=== PATIENT | male | born 1945 | race Caucasian/White ===

== ENCOUNTER 2022-11-28 07:40 | Outpatient (CLI) | payer MEDICARE, SELFPAY ==
--- NOTE | 2022-11-28 08:36 | ECG_ITS ---
Measurements Intervals [place] Rate: 54 P: 52 IA: 186 QRS: 30 QRSD: 112 T: 29 QT: 419 QTc: 400 Interpretive Statements SINUS BRADYCARDIA INCOMPLETE RIGHT BUNDLE BRANCH BLOCK BASELINE ARTIFACT- I, II, III, AVR, AVL, AVF, V1, V4-V6 BORDERLINE ECG COMPARED TO ECG 06/27/2018 14:01:03 SINUS BRADYCARDIA NOW PRESENT Electronically Signed On 11-28-2022 9:56:26 CDT by Yo Smith D.O.
[2022-11-28 09:13] LABS: Hemoglobin A1C 6.4 % (<5.7)
[2022-11-28 09:14] LABS: Urine Cotinine NEGATIVE
== END 2022-11-28 07:41 | disposition home or self-care (01) ==
LOC: ANHSURGERY 07:44
PROVIDERS: PCP Family Medicine Sports Medicine; Visit Provider Orthopaedic Surgery
DX: M17.11 Unilateral primary osteoarthritis, right knee (principal); Z01.818 Encounter for other preprocedural examination; I45.10 Unspecified right bundle-branch block
CPT/HCPCS: 80307; 83036; 86850; 86900; 86901; 87081; 93005

== ENCOUNTER 2022-12-06 12:38 | Observation (INO) | payer MEDICARE, SELFPAY ==
[2022-11-28 07:51] VITALS: BMI 30.7
--- NOTE | 2022-11-28 08:19 | PC.NURSE ---
Report to the Outpatient Waiting Room, entrance under the green pavilion located off [facility], at time _0600 on date __12/05/22 . Planned Procedure Time: _0730 . Time changes happen often and if your time is changed the preop area will call you the afternoon before. - You and your visitor will be asked to self-screen and do not enter if you have any COVID symptoms. - A mask is optional within the hospital at this time. Patients may have clear liquids (water, carbonated beverages, clear teas, apple juice) until 3 hours prior to surgery with a maximum of 20 ounces. - No food from midnight until time of surgery - Infants may have breast milk until 4 hours before surgery, infant formula 6 hours prior to surgery. - Children will be allowed to drink immediately following surgery. If applicable, please bring a bottle or sippy cup to assist with drinking. Juice, water, soda, and popsicles are readily available. For infants on formula, please bring formula the day of surgery. Pacifiers are allowed. Take the following medications with a SIP of water the morning of surgery: ___DILTIAZEM,EYE DROP DO NOT STOP ANY OF YOUR OTHER PRESCRIPTION MEDICATIONS PRIOR TO SURGERY ?EXCEPT THE FOLLOWING Medications to discontinue per physician ALL VITAMINS AND SUPPLEMENTS 3 DAYS PRE OP.LAST DOSE 12/01/22 Please no make-up, nail vietnamese, hairspray, perfume, deodorant, or body powder the day of surgery. No jewelry (including any body piercings) or valuables the day of surgery, leave them at home. Please take a shower or bath the night before, or the morning of, surgery with an antibacterial soap. Wear comfortable, loose fitting clothing. Children are encouraged to wear pajamas. - Jewelry must be removed prior to entering the operating room. Rings and piercings that are not removed may be cut off. - The hospital will not accept responsibility for valuables. - Please leave all valuables, including medications, at home the day of surgery. If you are going home after surgery, a licensed lease purchase truck driver must drive you home. - NO public transportation without another adult if you receive anesthesia. - We recommend that an adult stay with you for 24 hours following discharge. - We also recommend that you do not drive, make important decision, drink alcoholic beverages, or take any drugs that were not prescribed by your health care provider for at least 24 hours after your discharge time. For Pediatric surgeries, we recommend two adults accompany the child home. Follow any additional instructions given to you from your surgeon. If you or anyone in your household have experienced Covid symptoms in the past week, please notify your surgeon or the nurse liaison at the phone number below for possible testing. VERBAL AND WRITTEN instructions given to __PATIENT and asked if any additional questions and then verbalized understanding. Patient advised to call surgeon office or pre surgery nurse liaison [phone] if any additional questions.
[2022-11-28 08:48] VITALS: BP 166/76; PULSE 66; RESP 18; TEMP 36.9; O2SAT 97
[2022-12-05] VITALS (14 sets, daily range): BP systolic 128–157; BP diastolic 71–87; PULSE 50–82; RESP 13–19; TEMP 35.6–37.2; O2SAT 94–99; BMI 30.3
[2022-12-05] MEDS: ACETAMINOPHEN 500 MG TABLET 1000 MG PO (06:42)
--- NOTE | 2022-12-05 06:43 | WPDANESEPPF ---
Anes - Initial Pre Proc Eval Procedure: Operation Date: 12/05/22 07:30 Proposed Procedures p Right Total Knee Arthroplasty - Venu Bryson MD Date/Time: 12/05/22 06:43 Surgeon: Venu Bryson MD Pre Op Diagnosis: OA right knee Patient Data Age: 77 Gender: M Height: 1.78 m Weight: 96.15 kg Last Vital Signs Temp 36.3 C L 12/05/22 06:12 Pulse 60 12/05/22 06:12 Resp 16 12/05/22 06:12 BP 151/85 H 12/05/22 06:12 Pulse Ox 97 12/05/22 06:12 O2 Del Method Room Air 12/05/22 06:12 Allergies Allergy/AdvReac Type Severity Reaction Status Date / Time No Known Allergies Allergy Verified 12/05/22 06:24 Home Medications Medication Instructions Recorded Confirmed Type acetaminophen 650 mg 650 mg PO Q12H 09/01/22 12/05/22 History tablet,extended release (Tylenol Arthritis Pain) ascorbate calcium (vitamin C) 500 500 mg PO DAILY 09/01/22 12/05/22 History mg tablet aspirin 81 mg capsule 81 mg PO DAILY 09/01/22 12/05/22 History fluorometholone 0.1 % eye 1 drp LEFT EYE DAILY 09/01/22 12/05/22 History drops,suspension glucosamine 500 1 cap PO DAILY 09/01/22 12/05/22 History vl-rdacgmxva-ylvbfxil comp 400 mg-D3 667 unit-C-Mn cap lisinopril 20 1 tablet PO DAILY 09/01/22 12/05/22 History mg-hydrochlorothiazide 25 mg tablet omega-3 fatty acids-fish oil 360 1 cap PO DAILY 09/01/22 12/05/22 History mg-1,200 mg capsule (Fish Oil) simvastatin 10 mg tablet 10 mg PO DAILY 09/01/22 12/05/22 History cholecalciferol (vitamin D3) 50 50 mcg PO DAILY 11/28/22 12/05/22 History mcg (2,000 unit) tablet diltiazem HCl 120 mg 120 mg PO Q12H 11/28/22 12/05/22 History capsule,extended release 12 hr Xarelto 10 mg tablet (rivaroxaban) 10 mg PO DAILY #14 tabs 12/01/22 12/05/22 Rx Patient hx anesthesia problems: none Family hx anesthesia problems: none Results Review: All pre-operative results and documents have been reviewed as part of the pre-operative evaluation. [facility] Past Medical History Medical History (Updated 12/02/22 @ 14:22 by Charly Martínez DO) Arthritis of right knee Hyperlipidemia Hypertension Surgical History Surgical History (Updated 12/02/22 @ 14:22 by Charly Martínez DO) History of cornea transplant left eye History of left knee replacement 07/12/18 History of tonsillectomy Family History Family History Father Malignant neoplasm of prostate Social History Social History Smoking status: Never smoker Additional smoking assessment comments: DENIES ANY FORM OF TOBACCO USE Alcohol intake: never Substance use: never Lack of Transportation: No Lack of Food: Never True Current Housing: I Have Housing Concerned About Future Housing: No Difficulty Paying Gas/Electric Bills: No Difficulty Paying for Meds: No Currently Unemployed: No Education: High School Diploma/GED Difficulty w/ Childcare or Family Care: No Living arrangements: with family Occupation/Education: occupation Additional occupation/education comments: semi-retired Spiritual care concerns: No Anes - Eval Final PreProcedure Day of Procedure 12/05/22 06:43 Patient weight: obese Heart: regular rate and rhythm Lungs: clear to auscultation and normal air movement Airway: Mallampati scale class II Neurological: alert and oriented Last oral intake: >/= 8 hours ASA classification: III Emergent: no Anesthetic plan: proceed Anesthesia type and monitoring: regional spinal and standard monitoring Results Review: All pre-operative results and documents have been reviewed as part of the pre-operative evaluation. Informed Consent: The patient's anesthetic plan and its attendant risks and benefits were discussed with the patient/family/POA. Questions were solicited and answers provided to the satisfaction of the patient/family/POA.
[2022-12-05] MEDS: LACTATED RINGERS 1,000 ML 30 ML IV CONT ×2 (06:50→10:19)
--- NOTE | 2022-12-05 06:58 | WPDANESPNB ---
Anes - Peripheral Nerve Block Date/Time: 12/05/22 06:58 I have discussed with the patient/family/POA the placement of a peripheral nerve block for post-operative pain management, including associated risks, benefits, complications, and side effects. Alternative methods of post-operative analgesia were detailed. Questions were solicited and answers provided to the satisfaction of the patient/family/POA. Time-Out: A pre-procedural Time-Out was completed immediately before starting the procedure and confirmed: Patient Identification, Site, Procedure, Patient Position and the Availability of Requisite Equipment. Clinical Indications: Acute post-operative pain management requested by the operative surgeon. Nerve Block Insertion Note Anes-nerve block: adductor canal right Patient position: supine Skin prep: chlorhexidine Needle: 22 gauge, stimulating, insulated echogenic needle. Needle length: 80 mm Technique: ultrasound Injectate: bupivacaine 0.5% with epi 5 mcg/ml (30cc - no epi) Observations: tolerated well Complications: none Procedure start time:: 724 Procedure end time:: 728
[2022-12-05] MEDS: TRANEXAMIC ACID 1,000MG/ISO100 1,000 MG/100 ML BAG 200 MG IVPB (07:05)
--- NOTE | 2022-12-05 07:18 | WPDHPUPDATE1 ---
History and Physical Update Update Date/Time: 12/05/22 07:18 History and Physical has been reviewed, including an updated exam of the patient. There are NO changes in the patient's condition. Risks, benefits, and alternatives have been discussed and questions answered. Patient agrees to proceed with procedure.
[2022-12-05] MEDS: ceFAZolin 2 GM/D5W 50 ML 2 GM/50 ML BAG IVPB ×2 (07:34→15:41)
[2022-12-05] MEDS: GENTAMICIN BONE CEMENT REFOBACIN 1 EACH TOPICAL (08:39)
[2022-12-05] MEDS: ceFAZolin SODIUM 1 GM VIAL IV PUSH (09:41)
--- NOTE | 2022-12-05 10:03 | P.OP_ITS ---
Procedure Note - Detailed Date of Procedure 12/05/22 Pre-op Diagnosis OA right knee Post-op Diagnosis Same Procedure Performed right total knee replacement Surgeon Venu Bryson MD Voltage Inspector Demar Mcmillan Anesthesia Regional and Spinal Description of Procedure The patient was identified and proper site identified. In the preop holding area the anesthesia team performed a right-sided sub sartorial block after which the patient was taken to the operating room and transferred to the OR table positioning supine taking care to pad the torso and extremities. After spinal anesthetic was administered a nonsterile tourniquet was placed high on the right thigh. The right lower extremity was prepped and draped in the usual sterile fashion. The extremity was exsanguinated and with the knee flexed tourniquet was inflated to 300 mmHg remaining up for approximately 74 minutes. An anterior midline incision was made and a modified medial parapatellar approach was used. Infra and suprapatellar fat pads were excised. Patella was resected leaving 15 mm thickness and prepared for the size 32 round three peg component. Using the intramedullary guide the distal femur was cut in the proper orientation for the size eight femoral component. Using the extramedullary guide the tibia was cut perpendicular to the long axis protecting collateral ligaments and popliteal structures. It was sized to a 8-. Flexion and extension gaps were balanced. Trial reduction was undertaken and the weight-bearing line was noted to passed through the center of the joint. Proximal tibia was drilled and punched in the proper orientation for the real component. Trial components were removed. The bone surfaces were washed with pulsatile lavage and dried. The real components were cemented simultaneously. The knee was held in extension and the patella held clamped until the cement had cured. Excess cement was removed from the joint. After trialing it was determined that the 13 mm insert gave full range of motion from 0-120 degrees of flexion and the patella tracked in the femoral groove with no lift-off. After final lavage the joint the real size 13 insert was placed and secured with a locking bar. A Betadine and saline wash was placed into the wound and allowed to sit for approximately 3 minutes and then evacuated. Periarticular tissues were infiltrated with 60 cc of the arthroplasty solution. Surgicel powder was applied into the wound during the closure. The extensor mechanism was repaired with #2 Vicryl suture and 0 looped PDS suture. Subcu was reapproximated with 3-0 Monocryl, 2-0 Stratafix and tissue adhesive for the skin. A sterile dressing was applied. He tolerated the procedure well, was awakened and extubated, transferred to the bed and was taken to recovery area in stable condition. There were no known intraoperative complications. Periope rative antibiotics were administered. Estimated Blood Loss 200 Tourniquet Time 74 Drains No Packing No Complications No immediate complications Condition Stable Disposition PACU [facility] Billing Surgery - Charge Forward: Surgery Billing ([id number])
--- NOTE | 2022-12-05 10:22 | SUR.OPER ---
100mL of clear yellow urine drained from waldrop at the end of the procedure
--- NOTE | 2022-12-05 12:33 | ADMGEN ---
This patient, Lonnie Costa, was admitted to [facility] Surg Room 321-01. Patient/family oriented to hospital policies and general routines including ID bracelet, bed and alarms, visiting hours, pain management, procedures, bathroom and other care routines, personal items, smoking policy, room service/diet, and visiting hours. Information on how to activate the Rapid Response Team has been discussed. Patient/Family are encouraged to report perceived risks to care and to ask questions if they do not understand what they are told or what they should do.
[2022-12-05] MEDS: oxyCODONE/ACETAMINOPHEN (*CRX) 5-325 MG TABLET 1 TABLET PO ×3 (12:40→20:45)
[2022-12-05] MEDS: oxyCODONE HCL (*CRX) 5 MG TAB IR PO (14:10)
[2022-12-05] MEDS: SENNA/DOCUSATE SODIUM TABLET 2 TAB PO (16:46)
[2022-12-05] MEDS: SIMVASTATIN 10 MG TABLET PO (20:45)
[2022-12-05] MEDS: dilTIAZem HCL 12 HR 60 MG CAP.12HR 120 MG PO (20:45)
--- NOTE | ~2022-12-06 | XR_ITS ---
EXAMINATION: [id number] DATE: 12/05/2022 10:46 INDICATION: Right total knee arthroplasty. Postop. TECHNIQUE: 2 views of right knee were obtained. COMPARISON: None. FINDINGS: There is a total right knee arthroplasty with patellar resurfacing in near-anatomic alignme nt. No fracture. There is gas in the knee joint and soft tissues, consistent with recent surgery. The re is a knee joint effusion. IMPRESSION: 1. Total right knee arthroplasty in near-anatomic alignment. Reviewed, dictated and finalized at location A.
[2022-12-06] MEDS: ceFAZolin 2 GM/D5W 50 ML 2 GM/50 ML BAG IVPB ×2 (00:18→08:50)
[2022-12-06 01:12] VITALS: BP 131/81; PULSE 96; RESP 18; TEMP 36.6; O2SAT 96
[2022-12-06] MEDS: oxyCODONE/ACETAMINOPHEN (*CRX) 5-325 MG TABLET 1 TABLET PO ×5 (01:41→20:18)
[2022-12-06 04:01] VITALS: BP 164/93; PULSE 95; RESP 18; TEMP 36.2; O2SAT 98
--- NOTE | 2022-12-06 07:37 | PM.DS ---
DS: Admitting Diagnosis Discharge Date 12-06-2022 Admitting Diagnosis Right knee osteoarthritis DS: Discharge Diagnosis Discharge Diagnosis (1) Status post total right knee replacement: Code(s): Z96.651 - Presence of right artificial knee joint Status: Acute Plan 77-year-old male postop day 1 after right total arthroplasty. He was able to ambulate with therapy yesterday and get up to use the bathroom with his walker overnight. Slight bloody drainage at the incision site this morning. No sign of purulent drainage. Pain is well controlled. Plan discharge later this afternoon and he has follow-up scheduled in our office in 2 weeks for wound check. Postoperative wound care and medications were reviewed in detail. He had no further questions. Was informed to call our office if he has any further questions or concerns prior to scheduled follow-up. DS: Summary Hospital Course Reason for hospitalization: Observation after outpatient procedure Hospital Course: 77-year-old male admitted for observation after right total knee arthroplasty on 12-05-2022. Uneventful overnight stay. He was able to work well with therapy yesterday and will continue to do so today using his walker. He will begin with his 1st dose of Xarelto today. He will also finish his IV antibiotics prior to discharge from the facility. Status at Discharge Functional status at discharge: uses cane/walker Overall status at discharge: patient is progressing back to baseline Time Spent with Patient Time attestation: Total time spent providing and/or coordinating discharge services: Time spent: Less than 30 minutes Exam Const: General: cooperative, healthy appearing, no acute distress and average body habitus Nutritional Appearance: average body habitus Orientation/consciousness: patient oriented x3 Limitations: no limitations HENMT: Head: normocephalic and atraumatic Ears: hearing grossly normal bilaterally Mouth: Yes moist mucous membranes Teeth and gingiva: fair dentition Eyes: General: appearance normal, both eyes and all related structures Alignment and Position: alignment normal Pupils: Equal, round and reactive pupils present Neck: Neck: normal visual inspection Chest: Chest palpation & inspection: normal inspection of the chest Resp: Effort & Inspection: normal respiratory effort and able to speak in complete sentences GI: Inspection: normal to inspection and non-distended GI Palp: Yes Soft to palpation and No Tenderness to palpation present (GI) Skin: General skin exam: normal color and no rashes or lesions noted Neuro: General: patient oriented x3 Cranial nerves: Yes Equal, round and reactive pupils present Speech: normal speech Sensory Exam: normal sensation Extrem: Other: Exam of the right knee demonstrates pain with active and passive flexion and extension of the knee. There is moderate swelling to the right lower extremity but this is expected with the recent surgical procedure. Calves negative. Neurovascular status right lower extremity is intact. Psych: Appearance: grossly normal Mental Status: mental status grossly normal Discharge Plan Discharge Patient Disposition: Home, Self-Care Discharge Instructions: 3 times daily for 20 minutes each time, reclining in bed with ice packs over the incision and a pillow underneath the calf of the affected leg, not under the knee. Your wound is glued so it is okay to remove the dressing, get into the shower and get the wound wet in two days. Be sure to read through all the information that came from a my office and the hospital. Most of the answers you will need can be found that material. Call the office with any questions that you cannot find answers to, or concerns you may have. After the Xarelto is completed, start taking one coated 325 mg aspirin daily and do this for four more weeks. Please call [facility] at as soon as possible to arrange for/v
[2022-12-06 08:00] VITALS: BP 138/85; PULSE 57; RESP 18; TEMP 35.9; O2SAT 98
[2022-12-06] MEDS: RIVAROXABAN 10 MG TABLET PO (08:56)
[2022-12-06] MEDS: CHOLECALCIFEROL 1,000 UNITS TABLET 2000 UNITS PO (08:57)
[2022-12-06] MEDS: FLUOROMETHOLONE 0.1% OP SUSP 5 ML BTL 1 DROP LEFT EYE (08:57)
[2022-12-06] MEDS: lisinopriL 20 MG TABLET PO (08:57)
[2022-12-06] MEDS: ASCORBIC ACID 500 MG TABLET PO (08:57)
[2022-12-06] MEDS: SENNA/DOCUSATE SODIUM TABLET 2 TAB PO ×2 (08:57→17:30)
[2022-12-06] MEDS: hydroCHLOROthiazide 25 MG TABLET PO (08:57)
[2022-12-06] MEDS: dilTIAZem HCL 12 HR 60 MG CAP.12HR 120 MG PO ×2 (08:57→20:18)
[2022-12-06 09:25] LABS: Basophils Absolute Auto 0.1 K/mm3 (0.0-0.1); Basophils Percent Auto 0.6 % (0.2-1.2); Eosinophils Percent Auto 0.1 % (0-4.4); Hematocrit 41.1 % (42.0-52.0); Hemoglobin 13.7 g/dL (14.0-18.0); Immature Granulocyte Absolute 0.03 K/mm3 (0.00-0.031); Immature Granulocyte Percent A 0.3 % (0-0.5); Lymphocytes Absolute Auto 1.49 K/mm3 (0.9-3.2); Lymphocytes Percent Auto 17.2 % (18.3-44.2); Mean Corpuscular HGB Conc 33.3 g/dl (32-36); Mean Corpuscular Hemoglobin 30.4 pg (26-34); Mean Corpuscular Volume 91.3 fl (80-100); Mean Platelet Volume 8.8 fl (7.4-10.4); Monocytes Absolute Auto 1.4 K/mm3 (0.1-0.6); Monocytes Percent Auto 15.6 % (2.6-8.5); Neutrophils Absolute Auto 5.7 K/mm3 (1.3-6.7); Neutrophils Percent Auto 66.2 % (45.5-73.1); Platelet Count Result 296 k/mm3 (150-375); Red Cell Distribution Width 13.4 % (11.5-14.5); White Blood Count 8.6 K/mm3 (4.5-10.0)
[2022-12-06 09:35] LABS: Alanine Aminotransferase 23 U/L (6-50); Albumin Level 3.7 g/dL (3.5-5.1); Alkaline Phosphatase 69 U/L (38-126); Anion Gap 6 mmol/L (8-16); Aspartate Amino Transferase 24 U/L (17-59); Bilirubin,Total 1.1 mg/dL (0.2-1.3); Blood Urea Nitrogen 12 mg/dL (9-20); Calcium 8.5 mg/dL (8.4-10.2); Carbon Dioxide 25 mmol/L (22-30); Chloride 96 mmol/L (98-107); Estimated CRCL calculation 89 ml/min; Estimated Glomerular Filt Rate > 60; Glucose 149 mg/dL (65-110); Potassium 3.9 mmol/L (3.4-5.0); Sodium 127 mmol/L (137-145)
[2022-12-06 09:37] LABS: INR 1.2; Partial Thromboplastin Time 32.9 SECONDS (22.3-36.8); Prothrombin Time 15.3 Seconds (11.1-14.7)
--- NOTE | 2022-12-06 09:56 | PM.IMCN ---
Assessment and Plan Assessment and plan (1) Status post total right knee replacement: Code(s): Z96.651 - Presence of right artificial knee joint Status: Acute Assessment and Plan: POD 1 from right total knee replacment with Dr Bryson -increased bleeding from knee this morning after working with therapy -will stay overnight -pain medications prn with oxycodone -bowel regimen with miralax -ice and elevate right knee -PT/OT -DVT prophylaxis with rivaroxaban HPI Data of Consult Consult date: 12/06/22 Requesting Physician: Venu Bryson MD Primary Care Provider: Armani Lee, Consult Narrative Narrative: Lonnie Costa is a 77 year old male with a past medical history of arthritis, hypertension, high cholesterol, and atrial fibrillation. He is postop day 1 for right total knee replacement with Dr. Bryson. hospitalist Medicine has been consulted to follow along in care of patient. He was going to discharge this morning, however his surgical incision had a moderate amount of bleeding present. Dr Bryson recommended him staying another night. He is seen at the bedside with his present. He says that he is doing pretty well just tired from not sleeping that great last night. He says that his pain is controlled with his current regimen and he is tolerating a diet. He has no concerns or complaints for me at this time. Review of Systems Review of Systems: All systems reviewed & are unremarkable except as noted in HPI and below PMFSH Past Medical History Medical History (Updated 12/06/22 @ 07:38 by SILVINO Salomon) Arthritis of right knee Hyperlipidemia Hypertension Surgical History Surgical History (Updated 12/06/22 @ 07:38 by SILVINO Salomon) History of cornea transplant left eye History of left knee replacement 07/12/18 History of tonsillectomy Family History Family History Father Malignant neoplasm of prostate Social History Social History Smoking status: Never smoker Additional smoking assessment comments: DENIES ANY FORM OF TOBACCO USE Alcohol intake: never Substance use: never Substance use type: does not use Lack of Transportation: No Lack of Food: Never True Current Housing: I Have Housing Concerned About Future Housing: No Difficulty Paying Gas/Electric Bills: No Difficulty Paying for Meds: No Currently Unemployed: No Education: High School Diploma/GED Difficulty w/ Childcare or Family Care: No Living arrangements: with family Occupation/Education: occupation Additional occupation/education comments: semi-retired Spiritual care concerns: No Meds Home Medications and Allergies Home Medications Medication Instructions Recorded Confirmed Type acetaminophen 650 mg 650 mg PO Q12H 09/01/22 12/05/22 History tablet,extended release (Tylenol Arthritis Pain) ascorbate calcium (vitamin C) 500 500 mg PO DAILY 09/01/22 12/05/22 History mg tablet aspirin 81 mg capsule 81 mg PO DAILY 09/01/22 12/05/22 History fluorometholone 0.1 % eye 1 drp LEFT EYE DAILY 09/01/22 12/05/22 History drops,suspension glucosamine 500 1 cap PO DAILY 09/01/22 12/05/22 History un-szqwwehwi-jzjykoci comp 400 mg-D3 667 unit-C-Mn cap lisinopril 20 1 tablet PO DAILY 09/01/22 12/05/22 History mg-hydrochlorothiazide 25 mg tablet omega-3 fatty acids-fish oil 360 1 cap PO DAILY 09/01/22 12/05/22 History mg-1,200 mg capsule (Fish Oil) simvastatin 10 mg tablet 10 mg PO DAILY 09/01/22 12/05/22 History cholecalciferol (vitamin D3) 50 50 mcg PO DAILY 11/28/22 12/05/22 History mcg (2,000 unit) tablet diltiazem HCl 120 mg 120 mg PO Q12H 11/28/22 12/05/22 History capsule,extended release 12 hr Xarelto 10 mg tablet (rivaroxaban) 10 mg PO DAILY #14 tabs 12/01/22 12/05/22 Rx celecoxib 100 mg capsule 100 mg PO BID 1 w
--- NOTE | 2022-12-06 10:54 | WPDANESPN ---
Anes - Prog Note Post-Op Date/Time: 12/06/22 10:54 Vital Signs: Last Vital Signs Temp 35.9 C L 12/06/22 08:00 Pulse 57 L 12/06/22 08:00 Resp 18 12/06/22 08:00 BP 138/85 12/06/22 08:00 Pulse Ox 98 12/06/22 08:00 O2 Del Method Room Air 12/06/22 08:55 O2 Flow Rate 3 12/05/22 10:30 Pain Score (VAS): 0 I/O: Intake & Output 12/05/22 12/06/22 12/06/22 23:59 07:59 15:59 Intake Total 790 750 240 Output Total 300 Balance 490 750 240 Laboratory Tests 12/06/22 09:08 12/06/22 09:08 12/06/22 09:08 WBC 8.6 RBC 4.50 L Hgb 13.7 L Hct 41.1 L MCV 91.3 MCH 30.4 MCHC 33.3 RDW 13.4 Plt Count 296 MPV 8.8 Immature Gran % (Auto) 0.3 Neut % (Auto) 66.2 Lymph % (Auto) 17.2 L [place] % (Auto) 15.6 H Eos % (Auto) 0.1 Baso % (Auto) 0.6 Lymph # (Auto) 1.49 [place] # (Auto) 1.4 H Eos # (Auto) 0.0 Baso # (Auto) 0.1 Abs Immat Gran (auto) 0.03 Absolute Neuts (auto) 5.7 Absolute Nucleated RBC 0.0 Nucleated RBC % 0.0 PT 15.3 H INR 1.2 APTT 32.9 Sodium 127 L Potassium 3.9 Chloride 96 L Carbon Dioxide 25 Anion Gap 6 L BUN 12 Creatinine 0.70 Estim Creat Clear Calc 89 Estimated GFR > 60 Glucose 149 H Calcium 8.5 Total Bilirubin 1.1 AST 24 ALT 23 Alkaline Phosphatase 69 Total Protein 7.0 Albumin 3.7 Patient Feedback: Patient satisfied with anesthetic care.
[2022-12-06 12:00] VITALS: BP 145/81; PULSE 91; RESP 16; TEMP 36.2; O2SAT 97
[2022-12-06 16:00] VITALS: BP 137/71; PULSE 79; RESP 18; TEMP 36.8; O2SAT 96
[2022-12-06] MEDS: SIMVASTATIN 10 MG TABLET PO (20:18)
[2022-12-06 21:32] VITALS: BP 107/60; PULSE 80; RESP 16; TEMP 37.2; O2SAT 96
[2022-12-07] MEDS: oxyCODONE/ACETAMINOPHEN (*CRX) 5-325 MG TABLET 1 TABLET PO ×3 (01:48→09:42)
[2022-12-07 05:52] VITALS: BP 121/55; PULSE 73; RESP 16; TEMP 37.1; O2SAT 91
[2022-12-07 06:05] VITALS: TEMP 37.1
--- NOTE | 2022-12-07 07:48 | PM.DS ---
DS: Admitting Diagnosis Discharge Date 12/07/2022 Admitting Diagnosis Right knee osteoarthritis DS: Discharge Diagnosis Discharge Diagnosis (1) Status post total right knee replacement: Code(s): Z96.651 - Presence of right artificial knee joint Status: Acute Plan 77-year-old male postop day 2 after right total arthroplasty. He has been doing well with physical therapy but has quite a bit of bloody drainage at the distal portion of his incision site. When he works on range of motion at the knee the drainage will sometimes start to accumulate at the distal part of the dressing. He will be discharged home with Mepilex dressing and will changes every 3 days. He will also use compression with an Андрей wrap on the knee. He can shower with the Mepilex dressing on. We will plan to see him back next week for wound check. Otherwise, his postop discharge medications were reviewed with him. He will call our office with any further questions or concerns prior to that scheduled follow-up. DS: Summary Hospital Course Reason for hospitalization: Observation after outpatient procedure Hospital Course: 77-year-old male admitted for right total knee arthroplasty. He is now postop day 2. He was kept for an extra overnight due to bloody drainage at the distal part of the incision. Otherwise he has had uneventful overnight stays. We have changed his postoperative wound care instructions to mobilize dressings to be changed every 3 days with a Андрей wrap for compression over the incision site. Status at Discharge Functional status at discharge: uses cane/walker Overall status at discharge: patient is progressing back to baseline Time Spent with Patient Time attestation: Total time spent providing and/or coordinating discharge services: Time spent: Less than 30 minutes Exam Const: General: cooperative, healthy appearing, no acute distress and average body habitus Nutritional Appearance: average body habitus Orientation/consciousness: patient oriented x3 Limitations: no limitations HENMT: Head: normocephalic and atraumatic Ears: hearing grossly normal bilaterally Mouth: Yes moist mucous membranes Teeth and gingiva: fair dentition Eyes: General: appearance normal, both eyes and all related structures Alignment and Position: alignment normal Pupils: Equal, round and reactive pupils present Neck: Neck: normal visual inspection Chest: Chest palpation & inspection: normal inspection of the chest Resp: Effort & Inspection: normal respiratory effort and able to speak in complete sentences GI: Inspection: normal to inspection and non-distended GI Palp: Yes Soft to palpation and No Tenderness to palpation present (GI) Skin: General skin exam: rashes and/or lesions noted and no erythema Neuro: General: patient oriented x3 Cranial nerves: Yes Equal, round and reactive pupils present Speech: normal speech Sensory Exam: normal sensation Extrem: Other: Exam of the right knee demonstrates limited active flexion extension of the knee, inspected with the recent surgical procedure. There is moderate swelling to the right knee. Calves negative. Neurovascular status right lower extremity is intact. Exam of the incision site shows some serosanguineous/bloody drainage at the distal portion of the incision. Psych: Appearance: grossly normal Mental Status: mental status grossly normal DS: Data Data Completed and Pending Labs on day of discharge: Labs from last 24 hours 12/06/22 09:08 WBC 8.6 RBC 4.50 L Hgb 13.7 L Hct 41.1 L MCV 91.3 MCH 30.4 MCHC 33.3 RDW 13.4 Plt Count 296 MPV 8.8 Immature Gran % (Auto) 0.3 Neut % (Auto) 66.2 Lymph % (Auto) 17.2 L [place] % (Auto) 15.6 H Eos % (Auto) 0.1 Baso % (Auto) 0.6 Lymph # (Auto) 1.49 [place] # (Auto) 1.4 H Eos # (Auto) 0.0 Baso # (Auto) 0.1 Abs Immat Gran (auto) 0.03 Absolute Neuts (auto) 5.7 Absolute Nucleated RBC 0.0 Nucleated RBC % 0.0 PT 15.3 H
[2022-12-07] MEDS: hydroCHLOROthiazide 25 MG TABLET PO (08:16)
[2022-12-07] MEDS: SENNA/DOCUSATE SODIUM TABLET 2 TAB PO (08:16)
[2022-12-07] MEDS: ASCORBIC ACID 500 MG TABLET PO (08:16)
[2022-12-07] MEDS: CHOLECALCIFEROL 1,000 UNITS TABLET 2000 UNITS PO (08:16)
[2022-12-07] MEDS: lisinopriL 20 MG TABLET PO (08:16)
[2022-12-07] MEDS: dilTIAZem HCL 12 HR 60 MG CAP.12HR 120 MG PO (08:16)
[2022-12-07] MEDS: RIVAROXABAN 10 MG TABLET PO (08:16)
[2022-12-07] MEDS: FLUOROMETHOLONE 0.1% OP SUSP 5 ML BTL 1 DROP LEFT EYE (08:17)
[2022-12-07 10:19] VITALS: BP 144/58; PULSE 82; RESP 16; TEMP 37.2; O2SAT 97
== END 2022-12-07 10:50 | disposition home or self-care (01) ==
LOC: ANHSURGERY 12:41 → ANH3MEDSUR 12:41
PROVIDERS: Nurse Practitioner Acute Care; Admitting Provider Orthopaedic Surgery; PCP Family Medicine Sports Medicine; Visit Provider Orthopaedic Surgery
PROC: (CPT 27447; principal; 2022-12-05 07:30)
DX: M17.11 Unilateral primary osteoarthritis, right knee (principal); I10 Essential (primary) hypertension; E78.00 Pure hypercholesterolemia, unspecified; I48.91 Unspecified atrial fibrillation; Z96.652 Presence of left artificial knee joint; Z79.1 Long term (current) use of non-steroidal anti-inflammatories (NSAID); Z79.82 Long term (current) use of aspirin; Z79.01 Long term (current) use of anticoagulants; Z79.891 Long term (current) use of opiate analgesic; Z79.899 Other long term (current) drug therapy
CPT/HCPCS: 27447; 64447; 36415; 73560; 80053; 80307; 83036; 85025; 85610; 85730; 86850; 86900; 86901; 87081; 93005; 97110; 97116; 97161; 97165; 97530; 97535; A9270; C1713; G0378; G0379; J0171; J0690; J2250; J2270; J2704; J2795; J3010; J7120